=== PATIENT | male | born 1965 | race Caucasian/White ===

== ENCOUNTER 2023-02-11 13:27 | Outpatient (AMB) | payer BC, SELFPAY ==
--- NOTE | 2023-02-11 13:31 | HO.NEPHOV_ITS ---
HPI HPI Comments History of Present Illness Details I had the privilege of seeing Jamaal in consultation for history of complex renal cyst, hyperuricemia as well as a renal stones. His serum creatinine has been 1.3 but had undergone creatinine clearance evaluation by 24 hour urine collection which was found to be appropriate, in the past. He used to have surveillance renal ultrasound as well as MRI for his complex renal cyst. He does not have any weight loss, night sweats, flank pain. He does not have any blood in the urine. He is hypertensive and is on hydrochlorothiazide. There is no history of any ELISABETH, CHF, CAD, CVA, PAD. He does not have any active systemic complaints. He is not a smoker. He tries to maintain good hydration and avoids nonsteroidal anti-inflammatory medications. There is no family history of any ESRD or renal transplantation. He currently feels well. [facility] Medical History (Updated 02/16/23 @ 08:56 by Nacho Rosenberg MD) Syncope Kidney cysts Kidney stones Hypertension Surgical History History of kidney surgery Family History Mother Hypertension Father Pacemaker Alcohol intake: never Patient Tobacco Use Status: Never used Tobacco Vital Signs 02/11/23 13:32 Height 5 ft 11 in Weight 186 lb 2 oz BMI 26.0 BP 134/90 H Blood Pressure Location Lt brachial Position Sitting Pulse 88 Pulse Source Pulse Oximeter Physical Exam Vital Signs: Last Vital Signs Pulse 88 02/11/23 13:32 BP 134/90 H 02/11/23 13:32 BMI result Body Mass Index 26.0 Const General: comfortable and no acute distress Orientation/consciousness: patient oriented x3 HEENT Head: Yes normocephalic Mouth: Normal oral and palatal mucosa present Eyes EOM: EOMs intact bilaterally Neck Neck: Yes supple Resp Auscultation: clear to auscultation bilaterally Cardio Jugular venous distension: no JVD Rate: regular rate GI Palpation (GI): Soft to palpation Auscultation: normal bowel sounds General: Yes no CVA tenderness Back/Spine/Pelvis Back: no CVA tenderness Skin General skin exam: no rashes or lesions noted Neuro General: patient oriented x3 and moves all extremities Extrem General: Yes no pedal edema Assessment & Plan Assessment & Plan (1) Kidney cysts: Code(s): N28.1 - Cyst of kidney, acquired (2) Hypertension: Code(s): I10 - Essential (primary) hypertension Qualifiers: Hypertension type: primary hypertension Qualified Code(s): I10 - Essential (primary) hypertension (3) Kidney stones: Code(s): N20.0 - Calculus of kidney (4) Hyperuricemia: Code(s): E79.0 - Hyperuricemia without signs of inflammatory arthritis and tophaceous disease Plan Jamaal has longstanding history of complex renal cyst as well as renal stones. He had MRI in the past which did not show any changes in the character of the renal cyst. Lately he had been having follow-up surveillance ultrasound. He has history of renal stones and has been on hydrochlorothiazide. He has history of hyperuricemia. His serum creatinine has been 1.3 but the last 24 hour urine collection showed appropriate GFR. His blood pressure is currently at goal. He should be on a low-sodium diet. He should cut back animal protein, maintain good hydration and take adequate amount of fruits and vegetables. I plan to armida ck a serum uric acid, 24 hour urine for GFR, calcium, citrate as well as uric acid. He should maintain his blood pressure at goal. I shall arrange all the follow-up studies with time. All questions were answered. Time spent retrieving data, documentation and patient encounter 27 minutes. Orders: Orders Electrolytes 02/11/23 I10 - Essential (primary) hypertension, N20.0 - Calculus of kidney, N28.1 - Cyst of kidney, acquired Blood Urea Nitrogen 02/11/23 I10 - Essential (primary) hypertension, N20.0 - Calculus of kidney, N28.1 - Cyst of kidney, acquired Creatinine 02/11/23 I10 - Essential (primary) hypertension, N20.0 - Calculus of kidney, N28.1 - Cyst of kidney, acquired Calcium 02/11/23 I10 - Essential (primary) hypertension, N20.0 - Calculus of kidney, N28.1 - Cyst of kidney, acquired UA and rflx microscopic 02/11/23 I10 - Essential (primary) hypertension, N20.0 - Calculus of kidney, N28.1 - Cyst of kidney, acquired Protein Creatinine Ratio, Ur 02/11/23 I10 - Essential (primary) hypertension, N20.0 - Calculus of kidney, N28.1 - Cyst of kidney, acquired Coding Level of Care Code New Pt Level 4 (57418) Diagnoses Kidney cysts N28.1 Primary hypertension I10 Hypertension type: primary hypertension Kidney stones N20.0 Hyperuricemia E79.0
[2023-02-11 13:32] VITALS: BP 134/90; PULSE 88; BMI 26.0
== END 2023-02-11 14:04 | disposition home or self-care (01) ==
PROVIDERS: Visit Provider Internal Medicine Nephrology
DX: N28.1 Cyst of kidney, acquired (principal); I10 Essential (primary) hypertension; N20.0 Calculus of kidney; E79.0 Hyperuricemia without signs of inflammatory arthritis and tophaceous disease; Z79.84 Long term (current) use of oral hypoglycemic drugs
CPT/HCPCS: 99203

== ENCOUNTER → 2023-02-11 13:27 | Outpatient (BNVA) | payer BC, SELFPAY | PROVIDERS: Visit Provider Internal Medicine Nephrology ==

== ENCOUNTER 2023-08-13 13:29 | Outpatient (AMB) | payer BC, SELFPAY ==
[2023-08-13 13:36] VITALS: BP 128/80; PULSE 77; O2SAT 96; BMI 26.2
--- NOTE | 2023-08-13 13:36 | HO.NEPHOV_ITS ---
Vital Signs 08/13/23 13:36 Height 5 ft 11 in Weight 188 lb BMI 26.2 BP 128/80 Blood Pressure Location Lt brachial Position Sitting Pulse 77 Pulse Source Pulse Oximeter Pulse Oximetry (%) 96 Oxygen Delivery Method Room Air Intake Visit Reasons: Kidney stones, BP/ Confirmed Family Consumer Scientist Required: No Accompanied by: Self / Same As Patient Allergies No Known Allergies Allergy (Verified 08/13/23 13:39) HPI Comments Details: I had the privilege of seeing Jamaal in follow up for history of complex renal cyst, hyperuricemia as well as a renal stones. His serum creatinine has been 1.3 but had undergone creatinine clearance evaluation by 24 hour urine collection which was found to be appropriate, in the past. He used to have surveillance renal ultrasound as well as MRI for his complex renal cyst. He does not have any weight loss, night sweats, flank pain. He does not have any blood in the urine. He is hypertensive and is on hydrochlorothiazide. There is no history of any ELISABETH, CHF, CAD, CVA, PAD. He does not have any active systemic complaints. He is not a smoker. He tries to maintain good hydration and avoids nonsteroidal anti-inflammatory medications. There is no family history of any ESRD or renal transplantation. He currently feels well. His BP has been labile. [facility] Medical History (Updated 02/16/23 @ 08:56 by Nacho Rosenberg MD) Syncope Kidney cysts Kidney stones Hypertension Surgical History History of kidney surgery Family History Mother Hypertension Father Pacemaker Social History Alcohol intake: never Patient Tobacco Use Status: Never used Tobacco Physical Exam Vital Signs: Last Vital Signs Pulse 77 08/13/23 13:36 BP 150/90 H 08/13/23 13:36 Pulse Ox 96 08/13/23 13:36 Oxygen Delivery Method Room Air 08/13/23 13:36 BMI result Body Mass Index 26.2 Const General: comfortable and no acute distress Orientation/consciousness: patient oriented x3 HEENT Head: Yes normocephalic Mouth: Normal oral and palatal mucosa present Eyes EOM: EOMs intact bilaterally Neck Neck: Yes supple Resp Auscultation: clear to auscultation bilaterally Cardio Jugular venous distension: no JVD Rate: regular rate GI Palpation (GI): Soft to palpation Auscultation: normal bowel sounds General: Yes no CVA tenderness Back/Spine/Pelvis Back: no CVA tenderness Skin General skin exam: no rashes or lesions noted Neuro General: patient oriented x3 and moves all extremities Extrem General: Yes no pedal edema Results Reviewed Nephrology Results: No Data to Display Assessment & Plan Assessment & Plan (1) Hyperuricemia: Code(s): E79.0 - Hyperuricemia without signs of inflammatory arthritis and tophaceous disease Category: Medical (2) Hypertension: Code(s): I10 - Essential (primary) hypertension Category: Medical Qualifiers: Hypertension type: primary hypertension Qualified Code(s): I10 - Essential (primary) hypertension (3) Kidney stones: Code(s): N20.0 - Calculus of kidney Category: Medical (4) Kidney cysts: Code(s): N28.1 - Cyst of kidney, acquired Category: Medical Plan Jamaal has longstanding history of complex renal cyst as well as renal stones. He had MRI in the past which did not show any changes in the character of the renal cyst. Lately he had been having follow-up surveillance ultrasound. He has history of renal stones and has been on hydrochlorothiazide. He has history of hyperuricemia. His serum creatinine has been 1.3 but the last 24 hour urine collection showed appropriate GFR. His blood pressure is currently at goal. He should be on a low-sodium diet. He should cut back animal protein, maintain good hydration and take adequate amount of fruits and vegetables. I plan to check a serum uric acid, 24 hour urine for GFR, calcium, citrate as well as uric acid. He should maintain his blood pressure at goal. I shall arrange all the follow-up studies with time. All questions were answered. Orders: Orders Electrolytes Today E79.0 - Hyperuricemia without signs of inflammatory arthritis and tophaceous disease, I10 - Essential (primary) hypertension, N20.0 - Calculus of kidney, N28.1 - Cyst of kidney, acquired Creatinine Today E79.0 - Hyperuricemia without signs of inflammatory arthritis and tophaceous disease, I10 - Essential (primary) hypertension, N20.0 - Calculus of kidney, N28.1 - Cyst of kidney, acquired Blood Urea Nitrogen Today E79.0 - Hyperuricemia without signs of inflammatory arthritis and tophaceous disease, I10 - Essential (primary) hypertension, N20.0 - Calculus of kidney, N28.1 - Cyst of kidney, acquired Medications: Changed From potassium citrate ER 40 mEq PO BID To potassium citrate ER 40 mEq (4 x 10 mEq (1,080 mg)) PO BID 90 days 720 tabs 1RF Refilled hydrochlorothiazide Take 2 tabs AM and 1 tab PM 37.5 mg (3 x 12.5 mg) PO DAILY 90 days 270 caps 1RF Coding Level of Care Code Est Pt Level 4 (62291) Diagnoses Hyperuricemia E79.0 Primary hypertension I10 Hypertension type: primary hypertension Kidney stones N20.0 Kidney cysts N28.1
== END 2023-08-13 14:02 | disposition home or self-care (01) ==
PROVIDERS: Visit Provider Internal Medicine Nephrology
DX: E79.0 Hyperuricemia without signs of inflammatory arthritis and tophaceous disease (principal); N20.0 Calculus of kidney; I10 Essential (primary) hypertension; N28.1 Cyst of kidney, acquired
CPT/HCPCS: 99214

== ENCOUNTER → 2023-08-13 13:29 | Outpatient (BNVA) | payer BC, SELFPAY | PROVIDERS: Visit Provider Internal Medicine Nephrology | DX: N28.1 Cyst of kidney, acquired (principal); I10 Essential (primary) hypertension; N20.0 Calculus of kidney ==

== ENCOUNTER 2023-10-31 10:18 | Outpatient (REF) | payer BC, SELFPAY ==
[2023-10-31 18:14] LABS: Anion Gap 14 (12-20); Blood Urea Nitrogen 18 mg/dL (9-16); Carbon Dioxide 27 mmol/L (22-29); Chloride 101 mmol/L (96-108); Estimated Glomerular Filt Rate 56; Sodium 138 mmol/L (135-145)
== END 2023-10-31 10:19 | disposition home or self-care (01) ==
LOC: HO.HKASLDS 10:18
PROVIDERS: Visit Provider Internal Medicine Nephrology
DX: E79.0 Hyperuricemia without signs of inflammatory arthritis and tophaceous disease (principal); I10 Essential (primary) hypertension; N28.1 Cyst of kidney, acquired
CPT/HCPCS: 36415; 80051; 82565; 84520

== ENCOUNTER 2024-05-12 10:40 | Outpatient (REF) | payer BC, SELFPAY ==
--- OUTSIDE RECORDS SUMMARY | 2024-05-12 12:34 | XMS_ITS | Clinical Summary ---
Author Organization [facility] Address [address] [place] [address] Care Team Providers Care Scow Captain Name Role Phone Eric Kidd MD Primary Care Provider [phone] Allergies No known active allergies Medications Medication [...] age to complete this topic Care Teams Scow Captain Relationship Specialty Start Date End Date Eric Kidd MD [address] [place] [address] PCP - General Family Medicine 10/21/23
--- OUTSIDE RECORDS SUMMARY | 2024-05-12 12:34 | XMS_ITS | Clinical Summary ---
Author Organization [facility] ity Address [address] [place] [address] Care Team Providers Care Copy Machine Operator Name Role Phone Eric Kidd DO Primary Care Provider [phone] Social History Tobacco Use Types Packs/Day Years [...] age to complete this topic Care Teams Copy Machine Operator Relationship Specialty Start Date End Date Eric Kidd DO [address] [place], [place] PCP - General 10/21/23
--- OUTSIDE RECORDS SUMMARY | 2024-05-12 12:34 | XMS_ITS | Clinical Summary ---
Author Organization [facility] Address [address] [facility] [address] [place] [address] Phone Care Team Providers Care Tester Equipment Name Role Phone Eric Kidd DO Primary Care Provider Allergies No known active allergies Medications hydroCHLOROthia [...] Influenza Vaccine (#1) 2023 01/06/2019, 2014 Insurance [facility] Care Teams Tester Equipment Relationship Specialty Start Date End Date Eric Kidd DO [address] [place] [address] PCP - General 04/04/20
--- OUTSIDE RECORDS SUMMARY | 2024-05-12 12:34 | XMS_ITS | Encounter Summary ---
Author Organization [facility] Address [address] [place] [address] Phone Care Team Providers Care Gas Maker Helper Name Role Phone Eric Kidd DO Primary Care Provider [phone] Encounter Details Date Type Department Care Team (Late st Contact Info) Description 12/14/2022 Documentation Only [facility] [address] [place] [phone] Rupert Holliday MD [address] [place] [phone] Social History Tobacco Use Types Packs/Day Years [...] on filedocumented in this encounter Care Teams Gas Maker Helper Relationship Specialty Start Date End Date Eric Kidd DO [address] [place] [address] PCP - General 04/04/20 documented as of this encounter
[2024-05-12 18:07] LABS: Anion Gap 14 (12-20); Blood Urea Nitrogen 22 mg/dL (9-16); Calcium 9.9 mg/dL (8.4-10.2); Carbon Dioxide 27 mmol/L (22-29); Chloride 102 mmol/L (96-108); Estimated Glomerular Filt Rate > 60; Potassium 3.6 mmol/L (3.3-5.1); Sodium 139 mmol/L (135-145); Uric Acid 7.1 mg/dL (3.4-7.0)
== END 2024-05-12 10:41 | disposition home or self-care (01) ==
LOC: HO.HKASLDS 10:40
PROVIDERS: Visit Provider Internal Medicine Nephrology
DX: E79.0 Hyperuricemia without signs of inflammatory arthritis and tophaceous disease (principal); I10 Essential (primary) hypertension
CPT/HCPCS: 36415; 80051; 82310; 82565; 84520; 84550

== ENCOUNTER 2024-05-12 10:40 | Outpatient (AMB) | payer BC, SELFPAY ==
--- NOTE | 2024-05-12 11:03 | HO.NEPHOV ---
Vital Signs 05/12/24 11:04 Height 5 ft 11 in Weight 187 lb BMI 26.1 BP 122/80 Blood Pressure Location Lt brachial Position Sitting Pulse 74 Pulse Source Pulse Oximeter Pulse Oximetry (%) 96 Oxygen Delivery Method Room Air Intake Visit Reasons: 6mon follow up/ Conf Production Mechanic Required: No Accompanied by: Self / Same As Patient Allergies No Known Allergies Allergy (Verified 05/12/24 11:03) HPI Comments Details: I had the privilege of seeing Jamaal in follow up for history of complex renal cyst, hyperuricemia as well as a renal stones. His serum creatinine has been 1.3 but had undergone creatinine clearance evaluation by 24 hour urine collection which was found to be appropriate, in the past. He used to have surveillance renal ultrasound as well as MRI for his complex renal cyst. He does not have any weight loss, night sweats, flank pain. He does not have any blood in the urine. He is hypertensive and is on hydrochlorothiazide. There is no history of any ELISABETH, CHF, CAD, CVA, PAD. He does not have any active systemic complaints. He is not a smoker. He tries to maintain good hydration and avoids nonsteroidal anti-inflammatory medications. There is no family history of any ESRD or renal transplantation. He currently feels well. His BP is well controlled. [facility] Medical History (Updated 02/16/23 @ 08:56 by Nacho Rosenberg MD) Syncope Kidney cysts Kidney stones Hypertension Surgical History History of kidney surgery Family History Mother Hypertension Father Pacemaker Social History Alcohol intake: never Patient Tobacco Use Status: Never used Tobacco Review of Systems Const All systems reviewed & are unremarkable except as noted in HPI and below Physical Exam Vital Signs: Last Vital Signs Pulse 74 05/12/24 11:04 BP 122/80 05/12/24 11:04 Pulse Ox 96 05/12/24 11:04 Oxygen Delivery Method Room Air 05/12/24 11:04 BMI result Body Mass Index 26.1 Const General: comfortable and no acute distress Orientation/consciousness: patient oriented x3 HEENT Head: Yes normocephalic Mouth: Normal oral and palatal mucosa present Eyes EOM: EOMs intact bilaterally Neck Neck: Yes supple Resp Auscultation: clear to auscultation bilaterally Cardio Jugular venous distension: no JVD Rate: regular rate GI Palpation (GI): Soft to palpation Auscultation: normal bowel sounds General: Yes no CVA tenderness Back/Spine/Pelvis Back: no CVA tenderness Skin General skin exam: no rashes or lesions noted Neuro General: patient oriented x3 and moves all extremities Extrem General: Yes no pedal edema Results Reviewed Nephrology Results: Sodium 138 mmol/L (135-145) 10/31/23 Potassium 4.0 mmol/L (3.3-5.1) 10/31/23 Chloride 101 mmol/L (96-108) 10/31/23 Carbon Dioxide 27 mmol/L (22-29) 10/31/23 BUN 18 mg/dL (9-16) H 10/31/23 Creatinine 1.32 mg/dL (0.5-1.4) 10/31/23 Assessment & Plan Assessment & Plan (1) Hyperuricemia: Code(s): E79.0 - Hyperuricemia without signs of inflammatory arthritis and tophaceous disease Category: Medical (2) Hypertension: Code(s): I10 - Essential (primary) hypertension Category: Medical Qualifiers: Hypertension type: primary hypertension Qualified Code(s): I10 - Essential (primary) hypertension (3) Kidney stones: Code(s): N20.0 - Calculus of kidney Category: Medical Plan Jamaal has longstanding history of complex renal cyst as well as renal stones. He had MRI in the past which did not show any changes in the character of the renal cyst. Kala has history of renal stones and has been on hydrochlorothiazide. He has history of hyperuricemia. His serum creatinine has been 1.3 but the last 24 hour urine collection showed appropriate GFR. His blood pressure is currently at goal. He should be on a low-sodium diet. He should cut back animal protein, maintain good hydration and take adequate amount of fruits and vegetables. I plan to check a serum uric acid, 24 hour urine for GFR, calcium, citrate as well as uric acid. He should maintain his blood pressure at goal. I shall arrange all the follow-up studies with time. All questions were answered. Orders: Orders Uric Acid Today E79.0 - Hyperuricemia without signs of inflammatory arthritis and tophaceous disease, I10 - Essential (primary) hypertension, N20.0 - Calculus of kidney Calcium Today E79.0 - Hyperuricemia without signs of inflammatory arthritis and tophaceous disease, I10 - Essential (primary) hypertension, N20.0 - Calculus of kidney Blood Urea Nitrogen Today E79.0 - Hyperuricemia without signs of inflammatory arthritis and tophaceous disease, I10 - Essential (primary) hypertension, N20.0 - Calculus of kidney Calcium, 24 Hr Ur 6 Months N20.0 - Calculus of kidney Oxalate, 24 Hr 6 Months N20.0 - Calculus of kidney Citric Acid 24hr Urine 6 Months N20.0 - Calculus of kidney Electrolytes Today E79.0 - Hyperuricemia without signs of inflammatory arthritis and tophaceous disease, I10 - Essential (primary) hypertension, N20.0 - Calculus of kidney Creatinine Today E79.0 - Hyperuricemia without signs of inflammatory arthritis and tophaceous disease, I10 - Essential (primary) hypertension, N20.0 - Calculus of kidney Sodium, 24Hr Urine Group 6 Months N20.0 - Calculus of kidney Uric Acid, 24Hr Urine Group 6 Months N20.0 - Calculus of kidney Coding Level of Care Code Est Pt Level 4 (40812) Diagnoses Hyperuricemia E79.0 Primary hypertension I10 Hypertension type: primary hypertension Kidney stones N20.0
[2024-05-12 11:04] VITALS: BP 122/80; PULSE 74; O2SAT 96; BMI 26.1
--- OUTSIDE RECORDS SUMMARY | 2024-05-12 11:43 | XMS_ITS ---
Author Name [facility] Organization Unknown Problems Problem Status Onset Date Problem Type Date of Resoluti on Source Pre-employment examination [facility]
--- OUTSIDE RECORDS SUMMARY | 2024-05-12 11:43 | XMS_ITS | Clinical Summary ---
Author Organization [facility] Address [address] [facility] [address] [place] [address] Phone Care Team Providers Care Buyer Intern Name Role Phone Eric Kidd DO Primary Care Provider [phone] Allergies No known active allergies Medications hydroCHLOROthia zide (MICROZIDE) 12.5 MG capsule TAKE 2 CAPSULES BY MOUTH EVERY MORNING AND 1 CAPSULE BY MOUTH EVERY EVENING 270 capsule 11 08/01/2020 Active potassium citrate 10 MEQ (1080 MG) CR tabletIndicatio ns:Acquired renal cystic disease,History of calculus of kidney Take 2 tablets (20 mEq total) by mouth in the morning and 2 tablets (20 mEq total) at noon and 2 tablets (20 mEq total) in the evening and 2 tablets (20 mEq total) before bedtime. Do not crush, chew, or split.. 720 tablet 5 12/26/2022 Active Active Problems Problem Noted Date Diagnosed Date Benign essential hypertension 10/12/2022 Chronic rhinitis 10/12/2022 10/12/2022 History of calculus of kidney 10/12/2022 Impotence of organic origin 10/12/202209/23 Pain of knee region 10/12/2022 Patient encounter status 10/12/2022 023 Screening status 10/12/2022 10/12/2022 Acquired renal cystic disease 07/29/2020 Chronic kidney disease stage 2 07/29/2020 Hypertensive disorder 07/29/2020 Renal stone 07/29/2020 Immunizations Name Administration Dates Next Due Influenza Split High Dose Preservative Free IM 1 Influenza Whole 01/06/2019 Family History Medical History Relation Comments Heart disease Father pace maker Kidney disease Father kidney stones Hypertension Mother Stroke Mother grandmother Kidney disease Sibling kidney stones Relation Status Comments Father Alive Mother Alive Sibling Social History Tobacco Use Types Packs/Day Years Used Date Smoking Tobacco: Never Smokeless Tobacco: Never Tobacco Cessation:Counseling Given: Not Answered Alcohol Use Standard Drinks/Week Comments Yes 0 (1 standard drink = 0.6 oz pure alcohol) Alcoholic Drinks/day: Occasional social drink Sex and Gender Information Value Date Recorded Sex Assigned at Not on file Legal Sex Male 5:02 PM EST Gender Identity Not on file Sexual Orientation Not on file Last Filed Vital Signs Vital Sign Reading Time Taken Comments Blood Pressure 126/82 10/17/2022 10:28 AM EDT Pulse 84 10/17/2022 10:28 AM EDT Temperature - - Respiratory Rate - - Oxygen Saturation 96% 10/17/2022 10:28 AM EDT Inhaled Oxygen Concentration - - Weight 84 kg (185 lb 1.3 oz) 10/17/2022 10:28 AM EDT Height 182.9 cm (6') 08/01/2020 4:06 PM EDT Body Mass Index 25.1 08/01/2020 4:06 PM EDT Plan of Treatment Health Maintenance Due Date Last Done Comments Pneumococcal Vaccine: Pediat rics (0 to 5 Years) and At-Risk Patients (6 to 64 Years) (1 of 2 - PCV) 1970 Hepatitis B Vaccine (1 of 3 - 19+ 3-dose series) 12/12/1983 Colorectal Cancer Screening: Annual FOBT 2013 Colorectal Cancer Screening: Colonoscopy 2013 Colorectal Cancer Screening: Sigmoidoscopy 2013 Influenza Vaccine (#1) 2023 01/06/2019, 2014 Insurance [facility] Care Teams Buyer Intern Relationship Specialty Start Date End Date Eric Kidd DO [address] [place] [address] PCP - General 04/04/20
--- OUTSIDE RECORDS SUMMARY | 2024-05-12 11:43 | XMS_ITS | Encounter Summary ---
Author Organization [facility] Address [address] [place] [address] Phone Care Team Providers Care Creative Services Specialist Name Role Phone Eric Kidd DO Primary Care Provider Encounter Details Date Type Department Care Team (Late st Contact Info) Description 12/14/2022 Documentation Only [facility] [address] [place] [id number] Rupert Holliday MD [address] [place] [phone] Social History Tobacco Use Types Packs/Day Years Used Date Smoking Tobacco: Never Smokeless Tobacco: Never Alcohol Use Standard Drinks/Week Comments Yes 0 (1 standard drink = 0.6 oz pure alcohol) Alcoholic Drinks/day: Occasional social drink Sex and Gender Information Value Date Recorded Sex Assigned at Not on file Legal Sex Male 5:02 PM EST Gender Identity Not on file Sexual Orientation Not on file documented as of this encounter Plan of Treatment Not on file documented as of this encounter Visit Diagnoses Not on filedocumented in this encounter Care Teams Creative Services Specialist Relationship Specialty Start Date End Date Eric Kidd DO [address] [place] [address] PCP - General 04/04/20 documented as of this encounter
--- OUTSIDE RECORDS SUMMARY | 2024-05-12 11:43 | XMS_ITS | Clinical Summary ---
Author Organization [facility] Address [address] [place] [address] Care Team Providers Care Animal Caregiver Name Role Phone Eric Kidd MD Primary Care Provider [phone] Allergies No known active allergies Medications Medication Sig Dispensed Refills Start Date End Date Status hydroCHLOROthiazide (MICROZIDE) 12.5 MG capsule Take 1 capsule (12.5 mg total) by mouth daily. 0 Active potassium chloride ER (K-DUR,KLOR-CON) tablet 10 mEq Take 1 tablet (10 mEq total) by mouth 2 (two) times a day. 0 Active Social History Tobacco Use Types Packs/Day Years Used Date Smoking Tobacco: Never Assessed Sex and Gender Information Value Date Recorded Sex Assigned at Male 10/21/2023 10:20 AM EDT Gender Identity Not on file Sexual Orientation Not on file Job Start Date Occupation Industry Not on file Not on file Not on file Last Filed Vital Signs Vital Sign Reading Time Taken Comments Blood Pressure 134/88 11/04/2023 9:00 AM EDT Pulse - - Temperature - - Respiratory Rate - - Oxygen Saturation - - Inhaled Oxygen Concentration - - Weight 82.1 kg (181 lb) 11/04/2023 9:00 AM EDT Height 180.3 cm (5' 11 ) 11/04/2023 9:00 AM EDT Body Mass Index 25.24 11/04/2023 9:00 AM EDT Plan of Treatment Health Maintenance Due Date Last Done Comments Hepatitis B Vaccines (1 of 3 - 3-dose series) 1964 Hepatitis C Screening 1964 COVID-19 Vaccine (#1) 06/10/1965 Depression Screening 1976 Preventative Health Evaluation 1982 DTap / Tdap / Td (1 - Tdap) 12/12/1983 Colon Cancer Screening (Colonoscopy) 2009 Shingrix-Zoster Vaccine (1 of 2) 2014 Influenza Vaccine (#1) 2023 12/23/2014 Pneumococcal Vaccine Aged Out No long er eligible based on patient's age to complete this topic RSV Ped < 20 months Aged Out No longe r eligible based on patient's age to complete this topic Care Teams Animal Caregiver Relationship Specialty Start Date End Date Eric Kidd MD [address] [place] [address] PCP - General Family Medicine 10/21/23
--- OUTSIDE RECORDS SUMMARY | 2024-05-12 11:43 | XMS_ITS | Clinical Summary ---
Author Organization [facility] Address [address] [place] [address] Care Team Providers Care Emissions Testing Technician Name Role Phone Eric Kidd DO Primary Care Provider [phone] Social History Tobacco Use Types Packs/Day Years Used Date Smoking Tobacco: Never Assessed Sex and Gender Information Value Date Recorded Sex Assigned at Not on file Legal Sex Male 1:39 PM EDT Gender Identity Not on file Sexual Orientation Not on file Plan of Treatment Health Maintenance Due Date Last Done Comments DTaP,Tdap,and Td Vaccines (1 - Tdap) 12/12/1983 Hepatitis B Vaccines (1 of 3 - 19+ 3-dose series) 12/12/1983 Pneumococcal Vaccine: 50+ Ye ars (1 of 1 - PCV) 2014 Zoster Vaccines (1 of 2) 2014 COVID-19 Vaccine (2023-2 5 season) 2023 Influenza Vaccine (#1) 2023 Cholesterol Screening (Lipid Panel) 01/08/2024 Colorectal Cancer Screening: Colonoscopy 01/08/2024 Depression Screening 01/08/2024 HIV Screening 01/08/2024 Hepatitis C Screening 01/08/2024 Social Influencers of Health Screening 01/08/2024 RSV Immunization Patients 60 + Years Old (1 - 1-dose 75+ series) 12/12/2039 HIB Vaccines Aged Out No longer eligi ble based on patient's age to complete this topic HPV Vaccines Aged Out No longer eligi ble based on patient's age to complete this topic Hepatitis A Vaccines Aged Out No long er eligible based on patient's age to complete this topic IPV Vaccines Aged Out No longer eligi ble based on patient's age to complete this topic MMR Vaccines Aged Out No longer eligi ble based on patient's age to complete this topic Meningococcal ACWY Vaccine Aged Out N o longer eligible based on patient's age to complete this topic Meningococcal B Vacine Aged Out No lo nger eligible based on patient's age to complete this topic Pneumococcal Vaccine: Pediat rics (0 to 5 Years) and At-Risk Patients (6 to 64 Years) Aged Out No longer eligible b ased on patient's age to complete this topic RSV Immunization Patients Un ace 20 months Aged Out No longer eligible b ased on patient's age to complete this topic Varicella Vaccines Aged Out No longer eligible based on patient's age to complete this topic Care Teams Emissions Testing Technician Relationship Specialty Start Date End Date Eric Kidd DO [address] [place], [place] PCP - General 10/21/23
== END 2024-05-12 11:19 | disposition home or self-care (01) ==
PROVIDERS: Visit Provider Internal Medicine Nephrology
DX: N20.0 Calculus of kidney (principal); I10 Essential (primary) hypertension
CPT/HCPCS: 99214

== ENCOUNTER 2024-10-28 08:52 | Outpatient (REF) | payer BC, SELFPAY ==
--- OUTSIDE RECORDS SUMMARY | 2024-10-28 09:02 | XMS_ITS | Clinical Summary ---
Author Organization [facility] Address [address] [place] [address] Care Team Providers Care Charge Manager Name Role Phone Eric Kidd MD Primary Care Provider [phone] Allergies No known active allergies Medications Medication [...] (1 of 2) 2014 Influenza Vaccine (#1) 2024 12/23/2014 Pneumococcal Vaccine Aged Out No long er eligible based on patient's age to complete this topic RSV Ped < 20 months Aged Out No longe r eligible based on patient's age to complete this topic Care Teams Charge Manager Relationship Specialty Start Date End Date Eric Kidd MD [address] [place] [address] PCP - General Family Medicine 10/21/23
--- OUTSIDE RECORDS SUMMARY | 2024-10-28 09:02 | XMS_ITS | Encounter Summary ---
Author Organization [facility] Address [address] [place] [address] Phone Care Team Providers Care Dross Skimmer Name Role Phone Eric Kidd DO Primary Care Provider [phone] Encounter Details Date Type Department Care Team (Late st Contact Info) Description 12/14/2022 Documentation Only [facility] [address] [place] [phone] Rupert Holliday MD [address] [place] [phone] Social History Tobacco Use Types Packs/Day Years [...] on filedocumented in this encounter Care Teams Dross Skimmer Relationship Specialty Start Date End Date Eric Kidd DO [address] [place] [address] PCP - General 04/04/20 documented as of this encounter
--- OUTSIDE RECORDS SUMMARY | 2024-10-28 09:02 | XMS_ITS ---
[facility] Name [facility] Organization Unknown Problems Problem Status Onset Date Problem Type Date of Resoluti on Source Pre-employment examination active EncounterDiagnosisAct CTTHJM H Encounters Encounter Type Encounter Reason Primary Diagnosis Location Date Ambulatory Encounter for pre-employment examination Encounter for pre-employment examination [facility] 11/04/2023 Ambulatory Encounter for pre-employment examination Encounter for pre-employment examination [facility] 11/04/2023 Care Team Organization Name Specialty Phone Email Start Date End Da te [facility] 11/04/2023 [facility] 10/23 [facility] 11/04/2023 10/06/2024
--- OUTSIDE RECORDS SUMMARY | 2024-10-28 09:02 | XMS_ITS | Clinical Summary ---
Author Organization [facility] ity Address [address] [place] [address] Care Team Providers Care Heat Seal Operator Name Role Phone Eric Kidd DO Primary Care Provider [phone] Social History Tobacco Use Types Packs/Day Years [...] Vaccines (1 of 2) 2014 COVID-19 Vaccine ( - 2023-2 5 season) 2023 Cholesterol Screening (Lipid Panel) 01/08/2024 Colorectal Cancer Screening: Colonoscopy 01/08/2024 HIV Screening 01/08/2024 Hepatitis C Screening 01/08/2024 Social Influencers of Health Screening 01/08/2024 Depression Screening 03/25/2024 Influenza Vaccine (#1) 2024 RSV Immunization Adult Patie nts (1 - 1-dose 75+ series) 12/12/2039 HIB [...] age to complete this topic Meningococcal B Vaccine Aged Out No l onger eligible based on patient's age to complete this topic RSV Immunization Patients Un ace 20 months Aged Out No longer eligible b ased on patient's age to complete this topic Varicella Vaccines Aged Out No longer eligible based on patient's age to complete this topic Care Teams Heat Seal Operator Relationship Specialty Start Date End Date Eric Kidd DO [address] [place] [address] PCP - General 10/21/23
[2024-10-28 14:13] LABS: Estimated Glomerular Filt Rate 58
[2024-10-28 14:57] LABS: Total Volume 24 Hour Urine 1750 mL
[2024-10-28 15:08] LABS: Total Volume 24 Hour Urine 1750 mL
[2024-10-28 15:09] LABS: Creatinine, mg/dL 129.41; Sodium, 24 Hr Urine 116.0 mmol/L
[2024-10-28 15:15] LABS: Creatinine, mg/dL 129.28; Uric Acid, mg/dL 50.0 mg/dL
[2024-10-30 21:43] LABS: Calcium/Creatinine Ratio 106 mg/g creat (30-210); Creatinine 24Hr Urine 2.33 g/24 h (0.50-2.15)
[2024-11-01 20:49] LABS: 24hr Urine Total Volume 1750 mL; Citric Acid, 24hr Urine 1178 mg/24 h (100-1300); Citric Acid/Creat Ratio 24U 561 mg/g creat (60-660); Creatinine, 24U 2.10 g/24 h (0.50-2.15)
[2024-11-07 02:29] LABS: 24hr Urine Total Volume 1750 mL; Oxalic Acid 24 Urine 70.3 mg/24 h (3.6-38.0)
== END 2024-10-28 08:53 | disposition home or self-care (01) ==
LOC: HO.HKASLDS 08:52
PROVIDERS: Visit Provider Internal Medicine Nephrology
DX: N20.0 Calculus of kidney (principal)
CPT/HCPCS: 36415; 82340; 82507; 82565; 83945; 84300; 84560

== ENCOUNTER 2024-11-10 09:23 | Outpatient (AMB) | payer BC, SELFPAY ==
--- NOTE | 2024-11-10 09:27 | HO.NEPHOV ---
Vital Signs 11/10/24 09:35 Height 5 ft 11 in Weight 186 lb 4 oz BMI 26.0 BP 120/88 Blood Pressure Location Lt brachial Position Sitting Pulse 72 Pulse Source Pulse Oximeter Pulse Oximetry (%) 98 Oxygen Delivery Method Room Air Intake Visit Reasons: 6mon follow up-Conf Medical Art Therapist Required: No Accompanied by: Self / Same As Patient Allergies No Known Allergies Allergy (Verified 11/10/24 09:35) HPI Comments Details: Jamaal was seen in follow up for history of complex renal cyst, hyperuricemia as well as a renal stones. His serum creatinine had been 1.3 but had undergone creatinine clearance evaluation by 24 hour urine collection which was found to be appropriate, in the past. He used to have surveillance renal ultrasound as well as MRI for his complex renal cyst. He does not have any weight loss, night sweats, flank pain. He does not have any blood in the urine. He is hypertensive and is on hydrochlorothiazide. There is no history of any ELISABETH, CHF, CAD, CVA, PAD. He does not have any active systemic complaints. He is not a smoker. He tries to maintain good hydration and avoids nonsteroidal anti-inflammatory medications. There is no family history of any ESRD or renal transplantation. He currently feels well. His BP is well controlled [facility] Medical History (Updated 02/16/23 @ 08:56 by Nacho Rosenberg MD) Syncope Kidney cysts Kidney stones Hypertension Surgical History History of kidney surgery Family History Mother Hypertension Father Pacemaker Social History Alcohol intake: never Patient Tobacco Use Status: Never used Tobacco Review of Systems Const All systems reviewed & are unremarkable except as noted in HPI and below Physical Exam Const General: comfortable and no acute distress Orientation/consciousness: patient oriented x3 HEENT Head: Yes normocephalic Mouth: Normal oral and palatal mucosa present Eyes EOM: EOMs intact bilaterally Neck Neck: Yes supple Resp Auscultation: clear to auscultation bilaterally Cardio Jugular venous distension: no JVD Rate: regular rate GI Palpation (GI): Soft to palpation Auscultation: normal bowel sounds General: Yes no CVA tenderness Back/Spine/Pelvis Back: no CVA tenderness Skin General skin exam: no rashes or lesions noted Neuro General: patient oriented x3 and moves all extremities Extrem General: Yes no pedal edema Assessment & Plan Assessment & Plan (1) Hypertension: Code(s): I10 - Essential (primary) hypertension Category: Medical Qualifiers: Hypertension type: primary hypertension Qualified Code(s): I10 - Essential (primary) hypertension (2) Kidney stones: Code(s): N20.0 - Calculus of kidney Category: Medical (3) Kidney cysts: Code(s): N28.1 - Cyst of kidney, acquired Category: Medical (4) Hyperuricemia: Code(s): E79.0 - Hyperuricemia without signs of inflammatory arthritis and tophaceous disease Category: Medical Plan Jamaal has longstanding history of complex renal cyst as well as renal stones. He had MRI in the past which did not show any changes in the character of the renal cyst. He has history of renal stones and has been on hydrochlorothiazide. He has history of hyperuricemia. His serum creatinine has been 1.28 but the last 24 hour urine collection showed appropriate GFR. His blood pressure is currently at goal. He should be on a low-sodium diet. He should cut back animal protein, maintain good hydration and take adequate amount of fruits and vegetables. His last serum uric acid was 7.1. 24 hour urine for uric acid and oxalate were high. He should maintain his blood pressure at goal. He should follow low oxalate diet. I started him on Allopurinol 100 mg daily . I shall arrange all the follow-up studies with time. All questions were answered Orders: Orders Uric Acid 6 Months E79.0 - Hyperuricemia without signs of inflammatory arthritis and tophaceous disease, I10 - Essential (primary) hypertension, N20.0 - Calculus of kidney, N28.1 - Cyst of kidney, acquired Electrolytes 6 Months E79.0 - Hyperuricemia without signs of inflammatory arthritis and tophaceous disease, I10 - Essential (primary) hypertension, N20.0 - Calculus of kidney, N28.1 - Cyst of kidney, acquired Blood Urea Nitrogen 6 Months E79.0 - Hyperuricemia without signs of inflammatory arthritis and tophaceous disease, I10 - Essential (primary) hypertension, N20.0 - Calculus of kidney, N28.1 - Cyst of kidney, acquired Creatinine 6 Months E79.0 - Hyperuricemia without signs of inflammatory arthritis and tophaceous disease, I10 - Essential (primary) hypertension, N20.0 - Calculus of kidney, N28.1 - Cyst of kidney, acquired Medications: New allopurinol 100 mg PO DAILY 90 tabs 3RF Coding Level of Care Code Est Pt Level 4 (65816) Diagnoses Primary hypertension I10 Hypertension type: primary hypertension Kidney stones N20.0 Kidney cysts N28.1 Hyperuricemia E79.0
[2024-11-10 09:35] VITALS: BP 120/88; PULSE 72; O2SAT 98; BMI 26.0
--- OUTSIDE RECORDS SUMMARY | 2024-11-10 10:27 | XMS_ITS | Encounter Summary ---
Author Organization [facility] Address [address] [place] [address] Phone Care Team Providers Care Ged Preparation Teacher Name Role Phone rEic Kidd DO Primary Care Provider [phone] Encounter Details Date Type Department Care Team (Late st Contact Info) Description 12/14/2022 Documentation Only [facility] [address] [place] [phone] Rupert Holliday MD [address] [place] [phone] Social History Tobacco Use Types Packs/Day Years [...] on filedocumented in this encounter Care Teams Ged Preparation Teacher Relationship Specialty Start Date End Date Eric Kidd DO [address] [place] [address] PCP - General 04/04/20 documented as of this encounter
--- OUTSIDE RECORDS SUMMARY | 2024-11-10 10:27 | XMS_ITS | Clinical Summary ---
Author Organization [facility] ity Address [address] [place] [address] Care Team Providers Care Charging Crane Operator Name Role Phone Eric Kidd DO Primary Care Provider Social History Tobacco Use Types Packs/Day Years [...] age to complete this topic Care Teams Charging Crane Operator Relationship Specialty Start Date End Date Eric Kidd DO [address] [place] [address] PCP - General 10/21/23
--- OUTSIDE RECORDS SUMMARY | 2024-11-10 10:27 | XMS_ITS | Clinical Summary ---
Author Organization [facility] Address [address] [place] [address] Care Team Providers Care Welder Plasma Arc Name Role Phone Eric Kidd MD Primary Care Provider [phone] Allergies No known active allergies Medications Medication [...] age to complete this topic Care Teams Welder Plasma Arc Relationship Specialty Start Date End Date Eric Kidd MD [address] [place] [address] PCP - General Family Medicine 10/21/23
== END 2024-11-10 09:48 | disposition home or self-care (01) ==
LOC: HO.HKAS 09:23
PROVIDERS: Visit Provider Internal Medicine Nephrology
DX: I10 Essential (primary) hypertension (principal); N28.1 Cyst of kidney, acquired; E79.0 Hyperuricemia without signs of inflammatory arthritis and tophaceous disease; N20.0 Calculus of kidney
CPT/HCPCS: 99214